=== PATIENT | female | born 1970 | race Caucasian/White ===

== ENCOUNTER → 2018-03-03 | Outpatient (CLI) | payer OTHER ==
--- NOTE | 2018-03-03 14:53 | US ---
EXAMINATION TYPE: US thyroid st tissue head/neck DATE OF EXAM: 03/03/2018 COMPARISON: NONE CLINICAL HISTORY: M54.2 Cervicalgia. GLAND SIZE: Right Lobe: 4.6 x 1.3 x 1.4 cm Overall Parenchyma: homogenous Left Lobe: 4.0 x 1.3 x 1.0 cm Overall Parenchyma: homogeneous Isthmus Thickness: 0.2 cm NODULES RIGHT: # of nodules measured on right: 1 1. 0.4 X 0.2 x 0.4 cm mixed nodule at the lower pole with well-defined margins; . This nodule is w ider than tall and shows no intranodular vascularity. Prior size: no prior LEFT: # of nodules measured on left: 0 ISTHMUS: # of nodules measured in the isthmus: 0 Bilateral neck scanned, no evidence of lymphadenopathy. IMPRESSION:
== END | disposition home or self-care (01) ==
LOC: RADUSWWP 14:04
PROVIDERS: ATTEND Internal Medicine
DX: M54.2 Cervicalgia (principal)
CPT/HCPCS: 76536